=== PATIENT | female | born 1935 | race Caucasian/White ===

== ENCOUNTER 2017-08-03 10:42 | Observation (INO) | payer OTHER, MEDICARE ==
[~2017-08-03] VITALS: Ht 165.1 cm; Wt 70.5 kg
[2017-08-03 11:55] LABS: BASOPHIL (%) 0.7 % (0-1); BASOPHIL COUNT 0.1 K/uL (0-0.1); EOSINOPHIL (%) 0.1 % (0-5); HEMATOCRIT 40.6 % (36.0-46.0); IMMATURE GRANULOCYTE (%) 0.3 % (0.0-0.7); LYMPHOCYTE (%) 12.6 % (15-42); LYMPHOCYTE COUNT 1.5 K/uL (1.0-2.8); MCH 29.6 PG (29.0-34.0); MCHC 34.5 G/DL (30.0-36.0); MCV 85.8 FL (83-99); MONOCYTE (%) 5.7 % (3-12); MONOCYTE COUNT 0.7 K/uL (0-0.8); NEUTROPHIL (%) 80.6 % (45-76); NEUTROPHIL COUNT 9.8 K/uL (1.8-6.4); PLATELET COUNT 387 K/uL (156-360); RBC DIS.WIDTH-CV 12.7 % (11.8-14.6); RBC DIS.WIDTH-SD 39.9 % (39-53); RED BLOOD COUNT 4.73 M/uL (3.80-5.20); WHITE BLOOD COUNT 12.2 K/uL (4.1-10.2)
[2017-08-03 12:01] LABS: INTER. NORMALIZED RATIO 1.1
[2017-08-03 12:02] LABS: APPEARANCE TURBID ((CLEAR)); BILIRUBIN NEGATIVE; BLOOD LARGE; COLOR AMBER ((YELLOW)); GLUCOSE (STRIP) >=500; KETONES NEGATIVE; LEUKOCYTES LARGE; NITRITE POSITIVE; PROTEIN (STRIP) 100; UROBILINOGEN 0.2 MG/DL (0.2-1.0)
[2017-08-03 12:03] LABS: CHLORIDE 101 mEq/L (99-109); POTASSIUM 4.1 mEq/L (3.7-5.4); SODIUM 137 mEq/L (136-147)
[2017-08-03 12:05] LABS: GLUCOSE 150 mg/dL (70-99)
[2017-08-03 12:09] LABS: CREATININE 0.8 mg/dL (0.6-1.3); GFR ESTIMATE (CALCULATED) > 59 mL/min/
[2017-08-03 12:10] LABS: UREA NITROGEN (BUN) 14 mg/dL (9-23)
[2017-08-03 12:15] LABS: TROP-I INTERPRETATION NEGATIVE; TROPONIN-I 0.01 ng/mL (0.0-0.30)
[2017-08-03 13:29] LABS: EPITHELIAL CELLS NONE SEEN /HPF
[2017-08-03 13:30] LABS: BACTERIA 4+ /HPF; MUCUS NONE SEEN /LPF; RED BLOOD CELLS 0-5 /HPF (0-5); UCUL ADDED? YES; WHITE BLOOD CELLS TNTC /HPF (0-5)
[2017-08-03] MEDS ORDERED: ATENOLOL25 MG PO (15:13)
[2017-08-03] MEDS ORDERED: AMLODIPINE BESY10 MG PO (15:13)
[2017-08-03] MEDS ORDERED: PRILOSEC20 MG PO (15:14)
[2017-08-03] MEDS ORDERED: METFORMIN HCL500 MG PO (15:14)
[2017-08-03] MEDS ORDERED: SPECTRAVITE1 EAC3 PO (15:15)
[2017-08-03 15:51] VITALS: BP 151/72
[2017-08-03 20:23] VITALS: BP 138/67
[2017-08-03 23:25] VITALS: BP 136/78
[2017-08-04 04:03] VITALS: BP 135/65
[2017-08-04 05:33] LABS: HEMATOCRIT 42.2 % (36.0-46.0); HEMOGLOBIN 13.9 G/DL (11.9-15.5); MCH 28.3 PG (29.0-34.0); MCHC 32.9 G/DL (30.0-36.0); MCV 85.9 FL (83-99); PLATELET COUNT 401 K/uL (156-360); RBC DIS.WIDTH-CV 12.8 % (11.8-14.6); RBC DIS.WIDTH-SD 39.9 % (39-53); RED BLOOD COUNT 4.91 M/uL (3.80-5.20); WHITE BLOOD COUNT 10.1 K/uL (4.1-10.2)
[2017-08-04 06:02] LABS: CHLORIDE 102 MEQ/L (99-109); CREATININE 0.7 MG/DL (0.6-1.3); GFR ESTIMATE (CALCULATED) > 59 mL/min/; GLUCOSE 118 mg/dL (70-99); POTASSIUM 3.6 MEQ/L (3.7-5.4); SODIUM 138 MEQ/L (136-147); UREA NITROGEN (BUN) 13 mg/dL (9-23)
[2017-08-04 07:14] VITALS: BP 122/58
[2017-08-04 11:30] VITALS: BP 142/67
[2017-08-04] MEDS ORDERED: CEFTIN500 MG PO (11:43)
== END 2017-08-04 12:25 | disposition home or self-care (01) ==
LOC: EME 10:42 → 4SOUTH 14:27 → EDOF 14:27 → ENRESERV 14:34 → 4SOUTH 15:46
PROVIDERS: Emergency Medicine; Family Medicine
DX: N39.0 Urinary tract infection, site not specified (principal); R55 Syncope and collapse; I10 Essential (primary) hypertension; E11.9 Type 2 diabetes mellitus without complications; K58.1 Irritable bowel syndrome with constipation; E78.5 Hyperlipidemia, unspecified; Z79.84 Long term (current) use of oral hypoglycemic drugs
CPT/HCPCS: 70450; 71045; 80048; 81003; 82948; 84484; 85025; 85027; 85610; 85730; 87086; 93005; 93880; 99281; 99285; G0378; G8978 GP CJ; G8979 GP CH; G8980 CJ; G8987 GO CJ; G8988 CI; G8989 CJ; J0696; J1650; J7030